=== PATIENT | female | born 1935 | race Caucasian/White ===

== ENCOUNTER 2016-07-08 05:56 | Inpatient (IN) | payer MEDICARE ==
--- NOTE | 2016-07-08 06:56 | EDM.PDOC ---
[id number] Chief Complaint: Respiratory Problem Stated Complaint: BREATHING DIFFICULTY Time Seen by Provider: 07/08/16 06:55 - History of Present Illness INITIAL COMMENTS - FREE TEXT/NARRATIVE: HISTORY AND PHYSICAL: History of present illness: Patient is a 80-year-old white female history of COPD and CHF transferred surfers of breath she has chronic intermittent shortness of breath but states that is slightly worse there is no chest pain nausea vomiting palpitations or other concern she does use a home nebulizer and is on multiple medications please see nursing notes Review of systems: As per history of present illness and below otherwise all systems reviewed and negative. Past medical history: As per history of present illness and as reviewed below otherwise noncontributory. Surgical history: As per history of present illness and as reviewed below otherwise noncontributory. Social history: No reported history of drug or alcohol abuse. Family history: As per history of present illness and as reviewed below otherwise noncontributory. Physical exam: HEENT: Atraumatic, normocephalic, pupils reactive, negative for conjunctival pallor or scleral icterus, mucous membranes moist, throat clear, neck supple, nontender, trachea midline. Lungs: diminished bilaterally scant basilar crackles, breath sounds equal bilaterally, chest nontender. Heart: S1S2, regular, negative for clicks, rubs, or JVD. Abdomen: Soft, nondistended, nontender. Negative for masses or hepatosplenomegaly. Negative for costovertebral tenderness. Pelvis: Stable nontender. Genitourinary: Deferred. Rectal: Deferred. Extremities: Atraumatic, negative for cords or calf pain. Neurovascular unremarkable. Neuro: Awake, alert, oriented. Cranial nerves II through XII unremarkable. Cerebellum unremarkable. Motor and sensory unremarkable throughout. Exam nonfocal. Diagnostics: CBC CMP PT/INR troponin BMP EKG chest x-ray Therapeutics: IV O2 monitor albuterol ipratropium nebulizer Impression: #1 dyspnea #2 COPD with acute exacerbation #3 CHF Definitive disposition and diagnosis as appropriate pending reevaluation and review of above. - Related Data Allergies Allergy/AdvReac Type Severity Reaction Status Date / Time No Known Drug Allergies Allergy Cannot Verified 07/08/16 06:18 Remember Home Meds: Home Meds Calcium Carbonate/Vitamin D3 [Caltrate 600 Plus D3 Tablet] 1 tab PO BID [History] Clopidogrel [Plavix] 75 tab PO DAILY 04/20/14 [History] Furosemide [Lasix] 1 tab PO DAILY 04/20/14 [History] Levothyroxine [Levothroid] 137 mcg PO DAILY 04/20/14 [History] Metoprolol Tartrate [Lopressor] 100 mg PO DAILY 04/20/14 [History] Multivit-Min/FA/Lycopene/Lut [Centrum Silver] 1 tab PO BEDTIME 04/20/14 [History ] Simvastatin [Zocor] 40 mg PO BEDTIME 04/20/14 [History] rOPINIRole [Requip] 4 mg PO BEDTIME 04/20/14 [History] Cyanocobalamin (Vitamin B12) [Cyanocobalamin] 1,000 mcg SQ ASDIRECTED 05/03/14 [ History] Albuterol/Ipratropium [DuoNeb 3.0-0.5 MG/3 ML] 3 ml INH Q4H PRN 07/08/16 [ History] Aspirin [Halfprin] 81 mg PO DAILY 07/08/16 [History] Ergocalciferol (Vitamin D2) [Vitamin D] 400 unit PO DAILY 07/08/16 [History] ED ROS GENERAL - Review of Systems Review Of Systems: ROS reveals no pertinent complaints other than HPI. ED EXAM, GENERAL - Physical Exam Exam: See Below (See dictation) Course - Vital Signs Last Recorded V/S: Last Vital Signs Temp 36.3 C 07/08/16 07:11 Pulse 82 07/08/16 07:16 Resp 19 07/08/16 07:16 BP 103/58 L 07/08/16 07:16 Pulse Ox 95 07/08/16 07:16 - Orders/Labs/Meds Orders: Active Orders 24 hr Category Date Time Status Patient Status [ADT] Stat ADT 07/08/16 07:14 Active EKG 12 Lead [EKG Documentation Completion] [RC] STAT Care 07/08/16 06:12 Active RT Aerosol Therapy [RC] ASDIRECTED Care 07/08/16 06:58 Active Chest 2V [CR] Stat Exams 07/08/16 06:11 Taken Labs: Laboratory Tests 07/08/16 07/08/16 07/08/16 Range/Units 06:20 06:20 06:20 WBC 6.83 (4.0-11.0) K/uL RBC 4.32 (4.30-5.90) M/uL Hgb 13.5 (12.0-16.0) g/dL Hct 42.2 (36.0-46.0) % MCV 97.7 (80.0-98.0) fL MCH 31.3 (27.0-32.0) pg MCHC 32.0 (31.0-37.0) g/dL RDW Std Deviation 50.4 (28.0-62.0) fl RDW Coeff of Janelle 14 (11.0-15.0) % Plt Count 266 (150-400) K/uL MPV 9.10 (7.40-12.00) fL Neut % (Auto) 80.6 H (48.0-80.0) % Lymph % (Auto) 11.7 L (16.0-40.0) % Stanley % (Auto) 6.1 (0.0-15.0) % Eos % (Auto) 1.0 (0.0-7.0) % Baso % (Auto) 0.6 (0.0-1.5) % Neut # (Auto) 5.5 (1.4-5.7) K/uL Lymph # (Auto) 0.8 (0.6-2.4) K/uL Stanley # (Auto) 0.4 (0.0-0.8) K/uL Eos # (Auto) 0.1 (0.0-0.7) K/uL Baso # (Auto) 0.0 (0.0-0.1) K/uL Nucleated RBC % 0.0 /100WBC Nucleated RBCs # 0 K/uL INR (0.86-1.11) Sodium 136 (136-146) mmol/L Potassium 4.5 (3.5-5.1) mmol/L Chloride 103 (98-110) mmol/L Carbon Dioxide 23 (21-31) mmol/L BUN 24 H (6.0-23.0) mg/dL Creatinine 1.4 (0.6-1.5) mg/dL Est Cr Clr Drug Dosing 24.59 mL/min Estimated GFR (MDRD) 36.3 ml/min Glucose 148 H (60-110) mg/dL Calcium 9.3 (8.8-10.8) mg/dL Total Bilirubin 0.6 (0.1-1.5) mg/dL AST 24 (5-40) IU/L ALT 18 (8-54) IU/L Alkaline Phosphatase 74 (40-150) Troponin I < 0.10 (0.0-0.29) NG/ML B-Natriuretic Peptide (<100) PG/ML Total Protein 7.8 (6.0-8.0) g/dL Albumin 3.8 (3.4-4.8) g/dL Globulin 4.0 H (2.0-3.5) g/dL Albumin/Globulin Ratio 1.0 L (1.3-2.8) 07/08/16 07/08/16 Range/Units 06:20 06:20 WBC (4.0-11.0) K/uL RBC (4.30-5.90) M/uL Hgb (12.0-16.0) g/dL Hct (36.0-46.0) % MCV (80.0-98.0) fL MCH (27.0-32.0) pg MCHC (31.0-37.0) g/dL RDW Std Deviation (28.0-62.0) fl RDW Coeff of Janelle (11.0-15.0) % Plt Count (150-400) K/uL MPV (7.40-12.00) fL Neut % (Auto) (48.0-80.0) % Lymph % (Auto) (16.0-40.0) % Stanley % (Auto) (0.0-15.0) % Eos % (Auto) (0.0-7.0) % Baso % (Auto) (0.0-1.5) % Neut # (Auto) (1.4-5.7) K/uL Lymph # (Auto) (0.6-2.4) K/uL Stanley # (Auto) (0.0-0.8) K/uL Eos # (Auto) (0.0-0.7) K/uL Baso # (Auto) (0.0-0.1) K/uL Nucleated RBC % /100WBC Nucleated RBCs # K/uL INR 0.99 (0.86-1.11) Sodium (136-146) mmol/L Potassium (3.5-5.1) mmol/L Chloride (98-110) mmol/L Carbon Dioxide (21-31) mmol/L BUN (6.0-23.0) mg/dL Creatinine (0.6-1.5) mg/dL Est Cr Clr Drug Dosing mL/min Estimated GFR (MDRD) ml/min Glucose (60-110) mg/dL Calcium (8.8-10.8) mg/dL Total Bilirubin (0.1-1.5) mg/dL AST (5-40) IU/L ALT (8-54) IU/L Alkaline Phosphatase (40-150) Troponin I (0.0-0.29) NG/ML B-Natriuretic Peptide 1268 H (<100) PG/ML Total Protein (6.0-8.0) g/dL Albumin (3.4-4.8) g/dL Globulin (2.0-3.5) g/dL Albumin/Globulin Ratio (1.3-2.8) Meds: Medications Discontinued Medications Generic Name Dose Route Start Last Admin Trade Name Darrelq PRN Reason Stop Dose Admin Albuterol/Ipratropium 3 ml 07/08/16 06:58 07/08/16 07:03 Duoneb 3.0-0.5 Mg/3 Ml NEB 07/08/16 06:59 3 ml ONETIME ONE Administration Furosemide 40 mg 07/08/16 07:02 07/08/16 07:13 Lasix IVPUSH 07/08/16 07:03 40 mg NOW ONE Administration Departure - Departure Time of Disposition: 07:12 Disposition: Admitted As Inpatient 67 Condition: good Clinical Impression: COPD (chronic obstructive pulmonary disease), CHF (congestive heart failure) - Discharge Information Referrals: PCP,None [Primary Care Provider] - Forms: ED Department Discharge <Amrik May - Last Filed: 07/08/16 07:24> ED HPI GENERAL MEDICAL PROBLEM - General Source of Information: Reports: Patient - History of Present Illness INITIAL COMMENTS - FREE TEXT/NARRATIVE: HISTORY AND PHYSICAL: History of present illness: [] Shortness of breath Review of systems: As per history of present illness and below otherwise all systems reviewed and negative. Past medical history: As per history of present illness and as reviewed below otherwise noncontributory. Surgical history: As per history of present illness and as reviewed below otherwise noncontributory. Social history: No reported history of drug or alcohol abuse. Family history: As per history of present illness and as reviewed below otherwise noncontributory. Physical exam: HEENT: Atraumatic, normocephalic, pupils reactive, negative for conjunctival pallor or scleral icterus, mucous membranes moist, throat clear, neck supple, nontender, trachea midline. Lungs: Clear to auscultation, breath sounds equal bilaterally, chest nontender. Heart: S1S2, regular, negative for clicks, rubs, or JVD. Abdomen: Soft, nondistended, nontender. Negative for masses or hepatosplenomegaly. Negative for costovertebral tenderness. Pelvis: Stable nontender. Genitourinary: Deferred. Rectal: Deferred. Extremities: Atraumatic, negative for cords or calf pain. Neurovascular unremarkable. Neuro: Awake, alert, oriented. Cranial nerves II through XII unremarkable. Cerebellum unremarkable. Motor and sensory unremarkable throughout. Exam nonfocal. Diagnostics: [] As above Therapeutics: [] As above Admitted Dr. Mccann Impression: [] COPD CHF Definitive disposition and diagnosis as appropriate pending reevaluation and review of above. Treatments RN PATIENT SERVICES: Reports: Breathing Treatments Past Medical History Cardiovascular History: Reports: High Cholesterol, Hypertension Respiratory History: Reports: COPD - Past Surgical History Other Cardiovascular Surgeries/Procedures: Mitral valve surgery Social & Family History - Family History Family Medical History: Noncontributory - Tobacco Use Smoking Status *Q: Former Smoker Years of Tobacco use: 61 Used Tobacco, but Quit: Yes Month Tobacco Last Used: "one year ago" Second Hand Smoke Exposure: Yes - Caffeine Use Caffeine Use: Reports: Coffee Caffeine Use Comment: 3cups/day - Alcohol Use Days Per Week of Alcohol Use: 0 - Recreational Drug Use Recreational Drug Use: No Course - Orders/Labs/Meds Meds: Medications Discontinued Medications Generic Name Dose Route Start Last Admin Trade Name Freq PRN Reason Stop Dose Admin Albuterol/Ipratropium 3 ml 07/08/16 06:58 07/08/16 07:03 Duoneb 3.0-0.5 Mg/3 Ml NEB 07/08/16 06:59 3 ml ONETIME ONE Administration Furosemide 40 mg 07/08/16 07:02 07/08/16 07:13 Lasix IVPUSH 07/08/16 07:03 40 mg NOW ONE Administration
[2016-07-08] MEDS ORDERED: Albuterol/Ipratropium 3.0-0.5 MG/3 ML Neb Soln NEB ONE (06:58)
[2016-07-08] MEDS ORDERED: Furosemide 40 MG/4 ML VIAL IVPUSH ONE (07:02)
--- NOTE | 2016-07-08 13:14 | PCM.HP ---
H&P History of Present Illness - History of Present Illness Initial Comments - Free Text/Narative: 80 yo female with pmh of [place], CVA, CHF, atrial fibrillation, and PVD who presents with several day history of shortness of breath, unproductive cough and worsening of lower extremity edema. She reports the shortenss of breath was worse last night and sitting up helped. She was seen in the ED today and noted to be satting 96% on three litters, CXR reported pulmonary vascular congestion. She was given duonebs and lasix. She does feel a little better now. She is visiting [facility] for [facility] . - Related Data Allergies/Adverse Reactions: Allergies Allergy/AdvReac Type Severity Reaction Status Date / Time No Known Drug Allergies Allergy Cannot Verified 07/08/16 06:18 Remember Home Medications: Home Meds Calcium Carbonate/Vitamin D3 [Caltrate 600 Plus D3 Tablet] 1 tab PO BID [History] Clopidogrel [Plavix] 75 tab PO DAILY 04/20/14 [History] Furosemide [Lasix] 1 tab PO DAILY 04/20/14 [History] Levothyroxine [Levothroid] 137 mcg PO DAILY 04/20/14 [History] Multivit-Min/FA/Lycopene/Lut [Centrum Silver] 1 tab PO BEDTIME 04/20/14 [History ] Simvastatin [Zocor] 20 mg PO BEDTIME 04/20/14 [History] rOPINIRole [Requip] 4 mg PO BEDTIME 04/20/14 [History] Cyanocobalamin (Vitamin B12) [Cyanocobalamin] 1,000 mcg SQ ASDIRECTED 05/03/14 [ History] Albuterol/Ipratropium [DuoNeb 3.0-0.5 MG/3 ML] 3 ml INH Q4H PRN 07/08/16 [ History] Aspirin [Halfprin] 81 mg PO DAILY 07/08/16 [History] Ergocalciferol (Vitamin D2) [Vitamin D] 400 unit PO DAILY 07/08/16 [History] Melatonin 5 mg PO BEDTIME 07/08/16 [History] Metoprolol Succinate [Toprol Xl] 100 mg PO DAILY 07/08/16 [History] Potassium Chloride [Klor-Con M20] 20 meq PO BID 07/08/16 [History] Spironolactone [Aldactone] 25 mg PO BID 07/08/16 [History] amLODIPine [Norvasc] 5 mg PO DAILY 07/08/16 [History] Past Medical History Cardiovascular History: Reports: Afib, Heart Failure, High Cholesterol, Hypertension, [place], SOB on Exertion Respiratory History: Reports: COPD Neurological History: Reports: CVA Endocrine/Metabolic History: Reports: Hypothyroidism - Past Surgical History Other Cardiovascular Surgeries/Procedures: Mitral valve surgery Endocrine Surgical History: Reports: None Neurological Surgical History: Reports: None Social & Family History - Family History Family Medical History: Noncontributory - Tobacco Use Smoking Status *Q: Former Smoker Years of Tobacco use: 61 Used Tobacco, but Quit: Yes Month Tobacco Last Used: "one year ago" Second Hand Smoke Exposure: Yes - Caffeine Use Caffeine Use: Reports: Coffee Caffeine Use Comment: 3cups/day - Alcohol Use Days Per Week of Alcohol Use: 0 - Recreational Drug Use Recreational Drug Use: No H&P Review of Systems - Review of Systems: Review Of Systems: See Below General: Reports: No Symptoms HEENT: Reports: No Symptoms Pulmonary: Reports: Shortness of Breath, Cough, Sputum (white) Cardiovascular: Reports: PND, Edema. Denies: Chest Pain, Palpitations Gastrointestinal: Reports: No Symptoms Genitourinary: Reports: No Symptoms Musculoskeletal: Reports: No Symptoms Skin: Reports: No Symptoms Psychiatric: Reports: No Symptoms Neurological: Reports: No Symptoms Hematologic/Lymphatic: Reports: No Symptoms Immunologic: Reports: No Symptoms Exam - Exam Exam: See Below - Vital Signs Vital Signs: Last Vital Signs Temp 37.1 C 07/08/16 12:26 Pulse 77 07/08/16 12:26 Resp 20 07/08/16 12:26 BP 155/67 H 07/08/16 12:26 Pulse Ox 93 L 07/08/16 12:46 Weight: 89.811 kg - Exam General: Alert, Oriented, 4 HEENT: Mucosa Moist & [place] Neck: Supple Lungs: Normal Respiratory Effort, Crackles (lower bases) Abdomen: Soft. No: Tenderness Extremities: Other (+2 edema of lower legs) - Patient Data Result Diagrams: 07/09/16 05:28 07/09/16 05:28 *Q Meaningful Use (ADM) - VTE *Q VTE Criteria *Q: - Stroke *Q Stroke Criteria *Q: - AMI *Q AMI Criteria *Q: Problem List Initiated/Reviewed/Updated: Yes Orders Last 24hrs: Active Orders 24 hr Category Date Time Status Antiembolic Devices [RC] PER UNIT ROUTINE Care 07/08/16 12:47 Ordered Oxygen Therapy [RC] PRN Care 07/08/16 12:46 Ordered RT Aerosol Therapy [RC] ASDIRECTED Care 07/08/16 10:03 Active VTE/DVT Education [RC] PER UNIT ROUTINE Care 07/08/16 12:46 Ordered Vital Signs [RC] Q4H Care 07/08/16 12:46 Ordered 2 Gram Sodium Diet [DIET] Diet 07/08/16 Breakfast Ordered Heart Healthy Diet [DIET] Diet 07/08/16 Breakfast Active BASIC METABOLIC PANEL,BMP [CHEM] AM Lab 07/09/16 05:11 Ordered BASIC METABOLIC PANEL,BMP [CHEM] AM Lab 07/10/16 05:11 Ordered BASIC METABOLIC PANEL,BMP [CHEM] AM Lab 07/11/16 05:11 Ordered CBC WITH AUTO DIFF [HEME] AM Lab 07/09/16 05:11 Ordered CBC WITH AUTO DIFF [HEME] AM Lab 07/10/16 05:11 Ordered CBC WITH AUTO DIFF [HEME] AM Lab 07/11/16 05:11 Ordered Albuterol/Ipratropium [DuoNeb 3.0-0.5 MG/3 ML] Med 07/08/16 10:00 Active 3 ml NEB Q4HRRT PRN Aspirin [Halfprin] Med 07/09/16 09:00 Ordered 81 mg PO DAILY Clopidogrel [Plavix] Med 07/09/16 09:00 Ordered 75 tab PO DAILY Furosemide [Lasix] Med 07/09/16 09:00 Ordered 1 tab PO DAILY Furosemide [Lasix] Med 07/08/16 14:00 Ordered 40 mg IVPUSH BIDDIURETIC Simvastatin [Zocor] Med 07/08/16 21:00 Ordered 40 mg PO BEDTIME rOPINIRole [Requip] Med 07/08/16 21:00 Ordered 4 mg PO BEDTIME Sequential Compression Device [OM.PC] Per Unit Routine Oth 07/08/16 12:46 Ordered Resuscitation Status Routine Resus Stat 07/08/16 12:46 Ordered Medication Orders Albuterol/Ipratropium (Duoneb 3.0-0.5 Mg/3 Ml) 3 ml NEB Q4HRRT PRN PRN Reason: Dyspnea Aspirin (Halfprin) 81 mg PO DAILY NAVA Clopidogrel Bisulfate (Plavix) 75 mg PO DAILY NAVA Furosemide (Lasix) 40 mg PO DAILY NAVA Furosemide (Lasix) 40 mg IVPUSH BIDDIURETIC NAVA Ropinirole HCl (Requip) 4 mg PO BEDTIME NAVA Simvastatin (Zocor) 40 mg PO BEDTIME NAVA Assessment/Plan Comment:: 80 yo female admitted with CHF exacerbation. We will diuresis with lasix. We will try to get medical records and medication list from [place]. If no recent echo may need to order one.
[2016-07-08] MEDS: Furosemide 40 MG/4 ML VIAL IVPUSH SCH (14:28)
[2016-07-08] MEDS ORDERED: rOPINIRole 1 MG Tab PO STA (16:08)
[2016-07-08] MEDS: Acetaminophen 325 MG Tab PO PRN (16:53)
[2016-07-08] MEDS: rOPINIRole 1 MG Tab PO SCH (20:28)
[2016-07-08] MEDS: Simvastatin 40 MG Tab PO SCH (21:19)
[2016-07-08] MEDS: Melatonin 3 MG Tab PO SCH (21:19)
[2016-07-08] MEDS: Albuterol/Ipratropium 3.0-0.5 MG/3 ML Neb Soln NEB PRN (21:34)
[2016-07-09] MEDS: Albuterol/Ipratropium 3.0-0.5 MG/3 ML Neb Soln NEB PRN (00:55)
[2016-07-09] MEDS: Acetaminophen 325 MG Tab PO PRN (04:34)
[2016-07-09] MEDS: Clopidogrel 75 MG Tab PO SCH (08:12)
[2016-07-09] MEDS: Aspirin 81 MG Tab.EC PO SCH (08:12)
[2016-07-09] MEDS: Furosemide 40 MG/4 ML VIAL IVPUSH SCH ×3 (08:12→23:01)
[2016-07-09] MEDS: Levothyroxine 25 MCG Tab PO SCH (08:12)
[2016-07-09] MEDS: Levothyroxine 112 MCG Tab PO SCH (08:12)
[2016-07-09] MEDS ORDERED: Furosemide 40 MG Tab PO SCH (09:00)
[2016-07-09] MEDS ORDERED: Enoxaparin 30 MG/0.3 ML Syringe SUBCUT SCH (09:00)
--- NOTE | 2016-07-09 09:13 | PCM.PN ---
- General Info Date of Service: 07/09/16 Admission Dx/Problem (Free Text): CHF exacerbation Subjective Update: Just ambulated back to bed from bathroom, very dyspenic, on 2.5 L NC. She reports sitting up continues to help. Denies any chest pain or palpitations. She reports Leg swelling has improved some, but "they are still swollen". Complaining of cracked dry flaking feet bilaterally. She is seeing a plaster machine operator who has order creams and ointments. She ultimately has stopped using those and is use down to soaking her feet in warm water, sometimes with Vinegar at Quality Control Coordinator's recommendation. Then after soaking she applies Bag balm and [place]'Keeffes foot cream, she would like do be able to do this here. Functional Status: Reports: pain controlled, tolerating diet, ambulating, urinating - Review of Systems General: Reports: No Symptoms. Denies: Fever HEENT: Reports: no symptoms. Denies: sinus congestion, sore throat Pulmonary: Reports: shortness of breath. Denies: cough, sputum Cardiovascular: Reports: Dyspnea on Exertion, Orthopnea, Edema. Denies: Chest Pain, Palpitations Gastrointestinal: Reports: No symptoms. Denies: Abdominal pain, Nausea, Vomiting Genitourinary: Reports: no symptoms. Denies: dysuria, frequency, burning Musculoskeletal: Reports: no symptoms Skin: Reports: dryness, other (flaking and cracking to soles of bilateral feet) Neurological: Reports: No Symptoms Psychiatric: Reports: no symptoms - Patient Data Vitals - most recent: Last Vital Signs Temp 97.7 F 07/09/16 08:00 Pulse 87 07/09/16 08:00 Resp 18 07/09/16 08:00 BP 105/53 L 07/09/16 08:00 Pulse Ox 93 L 07/09/16 08:00 Weight - most recent: 90.1 kg I&O - last 24 hours: Intake & Output 07/08/16 07/09/16 07/09/16 22:59 06:59 14:59 Intake Total 900 350 Output Total 2800 1200 Balance -1900 -850 Lab Results last 24 hrs: Laboratory Results - last 24 hr 07/09/16 07/09/16 Range/Units 05:28 05:28 WBC 5.78 (4.0-11.0) K/uL RBC 4.00 L (4.30-5.90) M/uL Hgb 12.8 (12.0-16.0) g/dL Hct 39.0 (36.0-46.0) % MCV 97.5 (80.0-98.0) fL MCH 32.0 (27.0-32.0) pg MCHC 32.8 (31.0-37.0) g/dL RDW Std Deviation 50.7 (28.0-62.0) fl RDW Coeff of Janelle 14 (11.0-15.0) % Plt Count 235 (150-400) K/uL MPV 9.10 (7.40-12.00) fL Neut % (Auto) 69.6 (48.0-80.0) % Lymph % (Auto) 17.3 (16.0-40.0) % [place] % (Auto) 10.7 (0.0-15.0) % Eos % (Auto) 1.9 (0.0-7.0) % Baso % (Auto) 0.5 (0.0-1.5) % Neut # (Auto) 4.0 (1.4-5.7) K/uL Lymph # (Auto) 1.0 (0.6-2.4) K/uL [place] # (Auto) 0.6 (0.0-0.8) K/uL Eos # (Auto) 0.1 (0.0-0.7) K/uL Baso # (Auto) 0.0 (0.0-0.1) K/uL Nucleated RBC % 0.0 /100WBC Nucleated RBCs # 0 K/uL Sodium 134 L (136-146) mmol/L Potassium 4.0 (3.5-5.1) mmol/L Chloride 97 L (98-110) mmol/L Carbon Dioxide 26 (21-31) mmol/L BUN 20 (6.0-23.0) mg/dL Creatinine 1.2 (0.6-1.5) mg/dL Est Cr Clr Drug Dosing 28.72 mL/min Estimated GFR (MDRD) 43.3 ml/min Glucose 105 (60-110) mg/dL Calcium 8.5 L (8.8-10.8) mg/dL Med Orders - Current: Current Medications Acetaminophen (Tylenol) 650 mg PO Q4H PRN PRN Reason: Pain/Fever Last Admin: 07/09/16 04:34 Dose: 650 mg Albuterol/Ipratropium (Duoneb 3.0-0.5 Mg/3 Ml) 3 ml NEB Q4HRRT PRN PRN Reason: Dyspnea Last Admin: 07/09/16 00:55 Dose: 3 ml Aspirin (Halfprin) 81 mg PO DAILY [facility] Last Admin: 07/09/16 08:12 Dose: 81 mg Clopidogrel Bisulfate (Plavix) 75 mg PO DAILY [facility] Last Admin: 07/09/16 08:12 Dose: 75 mg Furosemide (Lasix) 40 mg IVPUSH BIDDIURETIC [facility] Last Admin: 07/09/16 08:12 Dose: 40 mg Levothyroxine Sodium (Levothyroxine) 112 mcg PO ACBREAKFAST [facility] Last Admin: 07/09/16 08:12 Dose: 112 mcg Levothyroxine Sodium (Levothyroxine) 25 mcg PO ACBREAKFAST [facility] Last Admin: 07/09/16 08:12 Dose: 25 mcg Melatonin (Melatonin) 3 mg PO BEDTIME [facility] Last Admin: 07/08/16 21:19 Dose: 3 mg Ropinirole HCl (Requip) 4 mg PO BEDTIME [facility] Last Admin: 07/08/16 20:28 Dose: Not Given Simvastatin (Zocor) 40 mg PO BEDTIME [facility] Last Admin: 07/08/16 21:19 Dose: 40 mg Discontinued Medications Albuterol/Ipratropium (Duoneb 3.0-0.5 Mg/3 Ml) 3 ml NEB ONETIME ONE Stop: 07/08/16 06:59 Last Admin: 07/08/16 07:03 Dose: 3 ml Enoxaparin Sodium (Lovenox) 30 mg SUBCUT DAILY [facility] Furosemide (Lasix) 40 mg IVPUSH NOW ONE Stop: 07/08/16 07:03 Last Admin: 07/08/16 07:13 Dose: 40 mg Furosemide (Lasix) 40 mg PO DAILY [facility] Ropinirole HCl (Requip) 4 mg PO ONETIME STA Stop: 07/08/16 16:09 Last Admin: 07/08/16 16:46 Dose: 4 mg - Exam General: alert, oriented, cooperative HEENT: Pupils equal, Pupils reactive, EOMI, Mucous membr. moist/pink Neck: supple, JVD. No: lymphadenopathy Lungs: Decreased breath sounds (bibasilar with fine crackles), Wheezing ( bibasilar). No: Normal respiratory effort Cardiovascular: Regular Rate, Regular Rhythm Abdomen: bowel sounds present, soft, no tenderness, no distension Back Exam: Normal Inspection, Full Range of Motion Extremities: normal pulses, edema (+1 pitting edema to bilateral lower legs, +2 pitting to bilateral feet. +2 edema extending up to bilateral thighs, non- pitting.) Skin: dry, other (dry, flkaing skins covers entire sole of each foot. R great toe, there is some cracking noted, no erythema. There is tenderness noted. Requesting to continue home regimen of foot creams and soaking. Dryness and flaking also noted, but less severely to bilateral palms.). No: intact Neurological: no new focal deficit Psy/Mental Status: alert, normal affect, normal mood - Problem List & Annotations (1) CHF (congestive heart failure) SNOMED Code(s): 76154843 Code(s): I50.9 - HEART FAILURE, UNSPECIFIED Status: Acute Current Visit: Yes Qualifiers: Congestive heart failure type: diastolic Congestive heart failure chronicity: acute on chronic Qualified Code(s): I50.33 - Acute on chronic diastolic (congestive) heart failure Annotation/Comment:: Last ECHO February 2016 approximately revealed 65% EF (2) PVD (peripheral vascular disease) SNOMED Code(s): 770045590 Code(s): I73.9 - PERIPHERAL VASCULAR DISEASE, UNSPECIFIED Status: Chronic Current Visit: Yes (3) S/P mitral valve clip implantation SNOMED Code(s): 68139636834863 Code(s): Z98.890 - OTHER SPECIFIED POSTPROCEDURAL STATES; Z95.818 - PRESENCE OF OTHER CARDIAC IMPLANTS AND GRAFTS Status: Chronic Current Visit: Yes Annotation/Comment:: August 2015 (4) Mitral valve regurgitation SNOMED Code(s): 70789336 Code(s): I34.0 - NONRHEUMATIC MITRAL (VALVE) INSUFFICIENCY Status: Chronic Current Visit: Yes Qualifiers: Cardiac valve disease etiology: etiology unspecified Qualified Code(s): I34.0 - Nonrheumatic mitral (valve) insufficiency (5) A-fib SNOMED Code(s): 82923560 Code(s): I48.91 - UNSPECIFIED ATRIAL FIBRILLATION Status: Chronic Current Visit: Yes Qualifiers: Atrial fibrillation type: unspecified Qualified Code(s): I48.91 - Unspecified atrial fibrillation (6) RLS (restless legs syndrome) SNOMED Code(s): 88173595 Code(s): G25.81 - RESTLESS LEGS SYNDROME Status: Chronic Current Visit: Yes (7) CAD (coronary artery disease) SNOMED Code(s): 23709213 Code(s): I25.10 - ATHSCL HEART DISEASE OF [place] CORONARY ARTERY W/O ANG PCTRS Status: Chronic Current Visit: Yes Qualifiers: Coronary Disease-Associated Artery/Lesion type: [place] artery [place] vs. transplanted heart: [place] heart Associated angina: without angina Qualified Code(s): I25.10 - Atherosclerotic heart disease of [place] coronary artery without angina pectoris (8) HTN (hypertension) SNOMED Code(s): 38531808 Code(s): I10 - ESSENTIAL (PRIMARY) HYPERTENSION Status: Chronic Current Visit: Yes Qualifiers: Hypertension type: essential hypertension Qualified Code(s): I10 - Essential (primary) hypertension (9) Hypothyroidism SNOMED Code(s): 00301576 Code(s): E03.9 - HYPOTHYROIDISM, UNSPECIFIED Status: Chronic Current Visit: Yes Qualifiers: Hypothyroidism type: unspecified Qualified Code(s): E03.9 - Hypothyroidism , unspecified (10) History of CVA (cerebrovascular accident) SNOMED Code(s): 327465503 Code(s): Z86.73 - PRSNL HX OF TIA (TIA), AND CEREB INFRC W/O RESID DEFICITS Status: Chronic Current Visit: Yes Annotation/Comment:: 09/23/2002 (11) Hx of myocardial infarction SNOMED Code(s): 059471975 Code(s): I25.2 - OLD MYOCARDIAL INFARCTION Status: Chronic Current Visit : Yes Annotation/Comment:: 1982 - Problem List Review Problem List Initiated/Reviewed/Updated: Yes - My Orders Last 24 Hours: My Active Orders 07/09/16 08:24 Height and Weight [RC] DAILY Intake and Output Strict [RC] ASDIRECTED - Plan Plan:: 80 yo female admitted with CHF exacerbation. 1. CHF acute exacberation: Acute on Chronic, has hx of chronic diastolic heart failure. Records review from [place]. ECHO report reveals preserved EF, 60%, mild mitral valve stenosis and regurgitation, ,mild pulmonary artery hypertension, which had increased since last study.Continue diuresis with Lasix. Will restart Spironolactone.Strict I/O and daily weights. 2. CAD: Continue Plavix and ASA. Continue Zocor. 3. Hx afib: Continue Metoprolol. Monitor electrolytes 4. Hypothyroidism: Continue Levothyroxine 5. HTN: Monitor, stable at this time while receiving more Lasix, Hold Norvasc. 6. RLS: Continue Requip. 7. Cry skin to bilateral soles: Will continue warm water soaks, with creams. VTE prohylaxis: SCDs. Dispo: 2-3 days pending improvement.
[2016-07-09] MEDS: Metoprolol Succinate 100 MG Tab.ER PO SCH (09:53)
--- NOTE | 2016-07-09 15:11 | CR ---
EXAM DATE: 07/08/16 PATIENT'S AGE: 80 Patient: MURTAZA CHAPPELL Facility: [place], [place] Site . Site : [id number] Study: XRay Chest [id number]/21/2017 6:49:14 AM Ordering Physician: Doctor Sanchez Final Report: INDICATION: Shortness of breath TECHNIQUE: Chest radiograph 2 views COMPARISON: None FINDINGS: Cardiovascular and mediastinum: The heart silhouette is normal in size and morphology. The mediastinum is normal in appearance. There are 2 metallic clips seen over the cardiac silhouette. Lungs and pleural spaces: Interstitial prominence is present bilaterally. Mild bibasilar atelectasis seen. Small bilateral pleural effusions are noted. No pneumothorax is identified. Bones and soft tissues: No significant findings. IMPRESSION: 1. Mild interstitial pulmonary edema and small bilateral pleural effusions are noted. Dictated by Nate Gonzales MD @ 07/08/2016 6:52:14 AM Dictated by: Nate Gonzales MD @ 07/08/2016 06:52:18 (Electronic Signature) Report Signed by Proxy. [facility]
[2016-07-09] MEDS: Spironolactone 25 MG Tab PO SCH (22:59)
[2016-07-09] MEDS: Beta-Carotene (Vitamin A) w/Vitamin C & E plus Minerals Tab PO SCH (22:59)
[2016-07-09] MEDS: Simvastatin 40 MG Tab PO SCH (23:00)
[2016-07-09] MEDS: Melatonin 3 MG Tab PO SCH (23:00)
[2016-07-09] MEDS: rOPINIRole 1 MG Tab PO SCH (23:00)
[2016-07-09] MEDS: Calcium Carbonate/Vitamin D3 1500 MG-400 Units Tab PO SCH (23:00)
[2016-07-10] MEDS: Furosemide 40 MG/4 ML VIAL IVPUSH SCH ×3 (06:07→17:32)
[2016-07-10] MEDS: Levothyroxine 25 MCG Tab PO SCH (06:54)
[2016-07-10] MEDS: Levothyroxine 112 MCG Tab PO SCH (06:55)
--- NOTE | 2016-07-10 08:09 | PCM.PN ---
- General Info Date of Service: 07/10/16 Admission Dx/Problem (Free Text): CHF exacerbation Subjective Update: Doing better today, SOB continues, but is much improved. Able to ambulate more. Denies any chest pain or palpitations. She reports Leg swelling has improved some. Functional Status: Reports: pain controlled, tolerating diet, ambulating, urinating - Review of Systems General: Reports: No Symptoms. Denies: Fever HEENT: Reports: no symptoms. Denies: sinus congestion, sore throat, rhinitis Pulmonary: Reports: shortness of breath. Denies: cough, sputum Cardiovascular: Reports: Dyspnea on Exertion, Edema. Denies: Chest Pain, Palpitations Gastrointestinal: Reports: No symptoms. Denies: Abdominal pain, Nausea, Vomiting Genitourinary: Reports: no symptoms. Denies: dysuria, frequency, burning Musculoskeletal: Reports: no symptoms Skin: Reports: no symptoms Neurological: Reports: No Symptoms Psychiatric: Reports: no symptoms - Patient Data Vitals - most recent: Last Vital Signs Temp 97.2 F 07/10/16 07:59 Pulse 68 07/10/16 07:59 Resp 22 H 07/10/16 07:59 BP 122/62 07/10/16 07:59 Pulse Ox 95 07/10/16 07:59 Weight - most recent: 88.5 kg I&O - last 24 hours: Intake & Output 07/09/16 07/10/16 07/10/16 22:59 06:59 14:59 Intake Total 1120 500 Output Total 1800 1750 Balance -680 -1250 Lab Results last 24 hrs: Laboratory Results - last 24 hr 07/09/16 07/10/16 07/10/16 Range/Units 05:28 04:34 04:34 WBC 6.15 (4.0-11.0) K/uL RBC 4.01 L (4.30-5.90) M/uL Hgb 12.7 (12.0-16.0) g/dL Hct 39.2 (36.0-46.0) % MCV 97.8 (80.0-98.0) fL MCH 31.7 (27.0-32.0) pg MCHC 32.4 (31.0-37.0) g/dL RDW Std Deviation 49.9 (28.0-62.0) fl RDW Coeff of Janelle 14 (11.0-15.0) % Plt Count 247 (150-400) K/uL MPV 9.10 (7.40-12.00) fL Neut % (Auto) 60.7 (48.0-80.0) % Lymph % (Auto) 22.6 (16.0-40.0) % [place] % (Auto) 11.2 (0.0-15.0) % Eos % (Auto) 4.4 (0.0-7.0) % Baso % (Auto) 1.1 (0.0-1.5) % Neut # (Auto) 3.7 (1.4-5.7) K/uL Lymph # (Auto) 1.4 (0.6-2.4) K/uL [place] # (Auto) 0.7 (0.0-0.8) K/uL Eos # (Auto) 0.3 (0.0-0.7) K/uL Baso # (Auto) 0.1 (0.0-0.1) K/uL Nucleated RBC % 0.0 /100WBC Nucleated RBCs # 0 K/uL Sodium 137 (136-146) mmol/L Potassium 4.1 (3.5-5.1) mmol/L Chloride 99 (98-110) mmol/L Carbon Dioxide 28 (21-31) mmol/L BUN 20 (6.0-23.0) mg/dL Creatinine 1.2 (0.6-1.5) mg/dL Est Cr Clr Drug Dosing 28.72 mL/min Estimated GFR (MDRD) 43.3 ml/min Glucose 91 (60-110) mg/dL Calcium 8.7 L (8.8-10.8) mg/dL Magnesium 1.8 (1.5-2.3) mEq/L 07/10/16 Range/Units 04:34 WBC (4.0-11.0) K/uL RBC (4.30-5.90) M/uL Hgb (12.0-16.0) g/dL Hct (36.0-46.0) % MCV (80.0-98.0) fL MCH (27.0-32.0) pg MCHC (31.0-37.0) g/dL RDW Std Deviation (28.0-62.0) fl RDW Coeff of Janelle (11.0-15.0) % Plt Count (150-400) K/uL MPV (7.40-12.00) fL Neut % (Auto) (48.0-80.0) % Lymph % (Auto) (16.0-40.0) % [place] % (Auto) (0.0-15.0) % Eos % (Auto) (0.0-7.0) % Baso % (Auto) (0.0-1.5) % Neut # (Auto) (1.4-5.7) K/uL Lymph # (Auto) (0.6-2.4) K/uL [place] # (Auto) (0.0-0.8) K/uL Eos # (Auto) (0.0-0.7) K/uL Baso # (Auto) (0.0-0.1) K/uL Nucleated RBC % /100WBC Nucleated RBCs # K/uL Sodium (136-146) mmol/L Potassium (3.5-5.1) mmol/L Chloride (98-110) mmol/L Carbon Dioxide (21-31) mmol/L BUN (6.0-23.0) mg/dL Creatinine (0.6-1.5) mg/dL Est Cr Clr Drug Dosing mL/min Estimated GFR (MDRD) ml/min Glucose (60-110) mg/dL Calcium (8.8-10.8) mg/dL Magnesium 2.0 (1.5-2.3) mEq/L Med Orders - Current: Current Medications Acetaminophen (Tylenol) 650 mg PO Q4H PRN PRN Reason: Pain/Fever Last Admin: 07/09/16 04:34 Dose: 650 mg Albuterol/Ipratropium (Duoneb 3.0-0.5 Mg/3 Ml) 3 ml NEB Q4HRRT PRN PRN Reason: Dyspnea Last Admin: 07/09/16 00:55 Dose: 3 ml Aspirin (Halfprin) 81 mg PO DAILY [facility] Last Admin: 07/09/16 08:12 Dose: 81 mg Calcium Carbonate (Caltrate 600+D 1500 Mg-400 Units) 1 tab PO BID [facility] Last Admin: 07/09/16 23:00 Dose: 1 tab Cholecalciferol (Vitamin D3) 400 units PO DAILY [facility] Clopidogrel Bisulfate (Plavix) 75 mg PO DAILY [facility] Last Admin: 07/09/16 08:12 Dose: 75 mg Furosemide (Lasix) 40 mg IVPUSH 0600,1200,1800 [facility] Last Admin: 07/10/16 06:07 Dose: 40 mg Levothyroxine Sodium (Levothyroxine) 112 mcg PO ACBREAKFAST [facility] Last Admin: 07/10/16 06:55 Dose: 112 mcg Levothyroxine Sodium (Levothyroxine) 25 mcg PO ACBREAKFAST [facility] Last Admin: 07/10/16 06:54 Dose: 25 mcg Melatonin (Melatonin) 3 mg PO BEDTIME [facility] Last Admin: 07/09/16 23:00 Dose: 3 mg Metoprolol Succinate (Toprol Xl) 100 mg PO DAILY [facility] Last Admin: 07/09/16 09:53 Dose: 100 mg Multivitamins/Minerals (Prosight) 1 tab PO BEDTIME [facility] Last Admin: 07/09/16 22:59 Dose: 1 tab Ropinirole HCl (Requip) 4 mg PO BEDTIME [facility] Last Admin: 07/09/16 23:00 Dose: 4 mg Simvastatin (Zocor) 40 mg PO BEDTIME [facility] Last Admin: 07/09/16 23:00 Dose: 40 mg Spironolactone (Aldactone) 25 mg PO BID [facility] Last Admin: 07/09/16 22:59 Dose: 25 mg Discontinued Medications Albuterol/Ipratropium (Duoneb 3.0-0.5 Mg/3 Ml) 3 ml NEB ONETIME ONE Stop: 07/08/16 06:59 Last Admin: 07/08/16 07:03 Dose: 3 ml Enoxaparin Sodium (Lovenox) 30 mg SUBCUT DAILY [facility] Furosemide (Lasix) 40 mg IVPUSH NOW ONE Stop: 07/08/16 07:03 Last Admin: 07/08/16 07:13 Dose: 40 mg Furosemide (Lasix) 40 mg PO DAILY [facility] Furosemide (Lasix) 40 mg IVPUSH BIDDIURETIC [facility] Last Admin: 07/09/16 08:12 Dose: 40 mg Furosemide (Lasix) 40 mg IVPUSH TID [facility] Last Admin: 07/09/16 23:01 Dose: 40 mg Ropinirole HCl (Requip) 4 mg PO ONETIME STA Stop: 07/08/16 16:09 Last Admin: 07/08/16 16:46 Dose: 4 mg - Exam Quality Assessment: supplemental oxygen (continuing to wean to RA. ), DVT prophylaxis General: alert, oriented, cooperative Neck: supple Lungs: Crackles (fine crackles to bases, but much improved.). No: Normal respiratory effort (dyspnea noted with speech, but is improved from yesterday.) , Wheezing Cardiovascular: Regular Rate, Regular Rhythm Extremities: edema (+1 pitting edema to bilateral lower legs.) Skin: warm, dry, other (flaking continues to soles of feet) Neurological: no new focal deficit Psy/Mental Status: alert, normal affect, normal mood - Problem List & Annotations (1) CHF (congestive heart failure) SNOMED Code(s): 74488304 Code(s): I50.9 - HEART FAILURE, UNSPECIFIED Status: Acute Current Visit: Yes Qualifiers: Congestive heart failure type: diastolic Congestive heart failure chronicity: acute on chronic Qualified Code(s): I50.33 - Acute on chronic diastolic (congestive) heart failure Annotation/Comment:: Last ECHO February 2016 approximately revealed 65% EF (2) PVD (peripheral vascular disease) SNOMED Code(s): 512319289 Code(s): I73.9 - PERIPHERAL VASCULAR DISEASE, UNSPECIFIED Status: Chronic Current Visit: Yes (3) S/P mitral valve clip implantation SNOMED Code(s): 66192538713641 Code(s): Z98.890 - OTHER SPECIFIED POSTPROCEDURAL STATES; Z95.818 - PRESENCE OF OTHER CARDIAC IMPLANTS AND GRAFTS Status: Chronic Current Visit: Yes Annotation/Comment:: August 2015 (4) Mitral valve regurgitation SNOMED Code(s): 46414723 Code(s): I34.0 - NONRHEUMATIC MITRAL (VALVE) INSUFFICIENCY Status: Chronic Current Visit: Yes Qualifiers: Cardiac valve disease etiology: etiology unspecified Qualified Code(s): I34.0 - Nonrheumatic mitral (valve) insufficiency (5) A-fib SNOMED Code(s): 89317536 Code(s): I48.91 - UNSPECIFIED ATRIAL FIBRILLATION Status: Chronic Current Visit: Yes Qualifiers: Atrial fibrillation type: unspecified Qualified Code(s): I48.91 - Unspecified atrial fibrillation (6) RLS (restless legs syndrome) SNOMED Code(s): 39741497 Code(s): G25.81 - RESTLESS LEGS SYNDROME Status: Chronic Current Visit: Yes (7) CAD (coronary artery disease) SNOMED Code(s): 18651264 Code(s): I25.10 - ATHSCL HEART DISEASE OF [place] CORONARY ARTERY W/O ANG PCTRS Status: Chronic Current Visit: Yes Qualifiers: Coronary Disease-Associated Artery/Lesion type: [place] artery [place] vs. transplanted heart: [place] heart Associated angina: without angina Qualified Code(s): I25.10 - Atherosclerotic heart disease of [place] coronary artery without angina pectoris (8) HTN (hypertension) SNOMED Code(s): 06374065 Code(s): I10 - ESSENTIAL (PRIMARY) HYPERTENSION Status: Chronic Current Visit: Yes Qualifiers: Hypertension type: essential hypertension Qualified Code(s): I10 - Essential (primary) hypertension (9) Hypothyroidism SNOMED Code(s): 91745735 Code(s): E03.9 - HYPOTHYROIDISM, UNSPECIFIED Status: Chronic Current Visit: Yes Qualifiers: Hypothyroidism type: unspecified Qualified Code(s): E03.9 - Hypothyroidism , unspecified (10) History of CVA (cerebrovascular accident) SNOMED Code(s): 713551078 Code(s): Z86.73 - PRSNL HX OF TIA (TIA), AND CEREB INFRC W/O RESID DEFICITS Status: Chronic Current Visit: Yes Annotation/Comment:: 09/23/2002 (11) Hx of myocardial infarction SNOMED Code(s): 543549142 Code(s): I25.2 - OLD MYOCARDIAL INFARCTION Status: Chronic Current Visit : Yes Annotation/Comment:: 1982 - Problem List Review Problem List Initiated/Reviewed/Updated: Yes - My Orders Last 24 Hours: My Active Orders 07/09/16 08:24 Height and Weight [RC] DAILY Intake and Output Strict [RC] Q12H 07/09/16 09:30 Metoprolol Succinate [Toprol XL] 100 mg PO DAILY 07/09/16 11:47 Communication Order [RC] DAILY 07/09/16 21:00 Beta-Carotene(A) w/C & E/Min [Prosight] 1 tab PO BEDTIME Calcium Carbonate/Vitamin D3 [Caltrate 600+D 1500 MG-400 Units] 1 tab PO BID Spironolactone [Aldactone] 25 mg PO BID 07/10/16 06:00 Furosemide [Lasix] 40 mg IVPUSH 0600,1200,1800 07/10/16 09:00 Cholecalciferol (Vitamin D3) [Vitamin D3] 400 units PO DAILY 07/11/16 05:00 MAGNESIUM [CHEM] DAILY 07/12/16 05:00 MAGNESIUM [CHEM] DAILY - Plan Plan:: 80 yo female admitted with CHF exacerbation. 1. CHF acute exacberation: Acute on Chronic, has hx of chronic diastolic heart failure. Most recent ECHO in May. Continue diuresis with Lasix TID, close to "dry" weight of 192 lbs. Continue Spironolactone. Strict I/O and daily weights. 2. CAD: Continue Plavix and ASA. Continue Zocor. 3. Hx afib: Continue Metoprolol. Monitor electrolytes 4. Hypothyroidism: Continue Levothyroxine 5. HTN: Monitor, stable at this time while receiving more Lasix, Hold Norvasc. 6. RLS: Continue Requip. 7. Cry skin to bilateral soles: Will continue warm water soaks, with creams. VTE prohylaxis: SCDs. Dispo: Possible DC in am in weaned off oxygen and dyspnea improved
[2016-07-10] MEDS: Spironolactone 25 MG Tab PO SCH ×2 (08:52→21:12)
[2016-07-10] MEDS: Calcium Carbonate/Vitamin D3 1500 MG-400 Units Tab PO SCH ×2 (08:52→21:12)
[2016-07-10] MEDS: Aspirin 81 MG Tab.EC PO SCH (08:52)
[2016-07-10] MEDS: Clopidogrel 75 MG Tab PO SCH (08:52)
[2016-07-10] MEDS: Metoprolol Succinate 100 MG Tab.ER PO SCH (08:52)
[2016-07-10] MEDS: Cholecalciferol (Vitamin D3) 400 Unit Tab PO SCH (08:52)
[2016-07-10] MEDS: Acetaminophen 325 MG Tab PO PRN (14:18)
[2016-07-10] MEDS: Beta-Carotene (Vitamin A) w/Vitamin C & E plus Minerals Tab PO SCH (21:12)
[2016-07-10] MEDS: rOPINIRole 1 MG Tab PO SCH (21:13)
[2016-07-10] MEDS: Simvastatin 40 MG Tab PO SCH (21:13)
[2016-07-10] MEDS: Melatonin 3 MG Tab PO SCH (21:58)
[2016-07-11] MEDS: Levothyroxine 25 MCG Tab PO SCH (06:31)
[2016-07-11] MEDS: Levothyroxine 112 MCG Tab PO SCH (06:31)
[2016-07-11] MEDS: Furosemide 40 MG/4 ML VIAL IVPUSH SCH ×2 (06:38→13:40)
[2016-07-11 08:44] VITALS: BP 116/60
[2016-07-11] MEDS: Cholecalciferol (Vitamin D3) 400 Unit Tab PO SCH (09:04)
[2016-07-11] MEDS: Aspirin 81 MG Tab.EC PO SCH (09:04)
[2016-07-11] MEDS: Calcium Carbonate/Vitamin D3 1500 MG-400 Units Tab PO SCH (09:04)
[2016-07-11] MEDS: Metoprolol Succinate 100 MG Tab.ER PO SCH (09:04)
[2016-07-11] MEDS: Clopidogrel 75 MG Tab PO SCH (09:05)
[2016-07-11] MEDS: Spironolactone 25 MG Tab PO SCH (09:06)
--- NOTE | 2016-07-11 10:33 | PCM.DCSUM1 ---
Discharge Summary - Hospital Course Brief History: This 80 year old female with pmh of DC, CVA, CHF, atrial fibrillation, and PVD presented to the ED on 07/08/2016 with several day history of shortness of breath, unproductive cough and worsening of lower extremity edema. She reported the shortenss of breath was worse last night and sitting up helped. In the ED, hypoxia was noted and was satting 96% on 3 liters NC. CXR reported pulmonary vascular congestion. She was given Duonebs and Lasix IV , which did improve symptoms some. She is visiting [facility] for [facility] , she follows with [facility] and PCP in [place] at [place]. - Discharge Data Discharge Date: 07/11/16 Discharge Disposition: Home, Self-Care 01 Condition: Good - Discharge Diagnosis/Problem(s) (1) CHF (congestive heart failure) SNOMED Code(s): 64607288 ICD Code: I50.9 - HEART FAILURE, UNSPECIFIED Status: Acute Current Visit : Yes Problem Details: Last ECHO February 2016 approximately revealed 65% EF Qualifiers: Congestive heart failure type: diastolic Congestive heart failure chronicity: acute on chronic Qualified Code(s): I50.33 - Acute on chronic diastolic (congestive) heart failure (2) PVD (peripheral vascular disease) SNOMED Code(s): 378097370 ICD Code: I73.9 - PERIPHERAL VASCULAR DISEASE, UNSPECIFIED Status: Chronic Current Visit: Yes (3) S/P mitral valve clip implantation SNOMED Code(s): 37965148899959 ICD Code: Z98.890 - OTHER SPECIFIED POSTPROCEDURAL STATES; Z95.818 - PRESENCE OF OTHER CARDIAC IMPLANTS AND GRAFTS Status: Chronic Current Visit : Yes Problem Details: August 2015 (4) Mitral valve regurgitation SNOMED Code(s): 00020965 ICD Code: I34.0 - NONRHEUMATIC MITRAL (VALVE) INSUFFICIENCY Status: Chronic Current Visit: Yes Qualifiers: Cardiac valve disease etiology: nonrheumatic Qualified Code(s): I34.0 - Nonrheumatic mitral (valve) insufficiency (5) A-fib SNOMED Code(s): 29792836 ICD Code: I48.91 - UNSPECIFIED ATRIAL FIBRILLATION Status: Chronic Current Visit: Yes Qualifiers: Atrial fibrillation type: unspecified Qualified Code(s): I48.91 - Unspecified atrial fibrillation (6) RLS (restless legs syndrome) SNOMED Code(s): 92774695 ICD Code: G25.81 - RESTLESS LEGS SYNDROME Status: Chronic Current Visit: Yes (7) CAD (coronary artery disease) SNOMED Code(s): 25295138 ICD Code: I25.10 - ATHSCL HEART DISEASE OF [place] CORONARY ARTERY W/O ANG PCTRS Status: Chronic Current Visit: Yes Qualifiers: Coronary Disease-Associated Artery/Lesion type: [place] artery [place] vs. transplanted heart: cheesh[place]na heart Associated angina: without angina Qualified Code(s): I25.10 - Atherosclerotic heart disease of [place] coronary artery without angina pectoris (8) HTN (hypertension) SNOMED Code(s): 29500972 ICD Code: I10 - ESSENTIAL (PRIMARY) HYPERTENSION Status: Chronic Current Visit: Yes Qualifiers: Hypertension type: essential hypertension Qualified Code(s): I10 - Essential (primary) hypertension (9) Hypothyroidism SNOMED Code(s): 24883115 ICD Code: E03.9 - HYPOTHYROIDISM, UNSPECIFIED Status: Chronic Current Visit: Yes Qualifiers: Hypothyroidism type: unspecified Qualified Code(s): E03.9 - Hypothyroidism , unspecified (10) History of CVA (cerebrovascular accident) SNOMED Code(s): 878500483 ICD Code: Z86.73 - PRSNL HX OF TIA (TIA), AND CEREB INFRC W/O RESID DEFICITS Status: Chronic Current Visit: Yes Problem Details: 09/23/2002 (11) Hx of myocardial infarction SNOMED Code(s): 821557824 ICD Code: I25.2 - OLD MYOCARDIAL INFARCTION Status: Chronic Current Visit : Yes Problem Details: 1982 - Patient Instructions Diet: Heart Healthy Diet, Low Sodium Activity: As Tolerated Showering/Bathing: June Shower Notify Provider of: Fever, Increased Pain, Swelling and Redness, Drainage, Nausea and/or Vomiting Other/Special Instructions: Weigh yourself daily, call doctor if you gain 3-5 lbs over 2-3 days. - Discharge Plan Prescriptions/Med Rec: Albuterol [IJD: Ventolin HFA] 2 puff INH Q4H PRN #1 inh PRN Reason: SOB/wheezing Furosemide [Lasix] 60 mg PO BID #20 tablet Home Medications: Home Meds Calcium Carbonate/Vitamin D3 [Caltrate 600 Plus D3 Tablet] 1 tab PO BID [History] Clopidogrel [Plavix] 75 tab PO DAILY 04/20/14 [History] Levothyroxine [Levothroid] 137 mcg PO DAILY 04/20/14 [History] Multivit-Min/FA/Lycopene/Lut [Centrum Silver] 1 tab PO BEDTIME 04/20/14 [History ] Simvastatin [Zocor] 20 mg PO BEDTIME 04/20/14 [History] rOPINIRole [Requip] 4 mg PO BEDTIME 04/20/14 [History] Cyanocobalamin (Vitamin B12) [Vitamin B12] 1,000 mcg SQ ASDIRECTED 05/03/14 [ History] Albuterol/Ipratropium [DuoNeb 3.0-0.5 MG/3 ML] 3 ml INH Q4H PRN 07/08/16 [ History] Aspirin [Halfprin] 81 mg PO DAILY 07/08/16 [History] Ergocalciferol (Vitamin D2) [Vitamin D] 400 unit PO DAILY 07/08/16 [History] Melatonin 5 mg PO BEDTIME 07/08/16 [History] Metoprolol Succinate [Toprol Xl] 100 mg PO DAILY 07/08/16 [History] Potassium Chloride [Klor-Con M20] 20 meq PO BID 07/08/16 [History] Spironolactone [Aldactone] 25 mg PO BID 07/08/16 [History] amLODIPine [Norvasc] 5 mg PO DAILY 07/08/16 [History] Albuterol [IJD: Ventolin HFA] 2 puff INH Q4H PRN #1 inh 07/11/16 [Rx] Furosemide [Lasix] 60 mg PO BID #20 tablet 07/11/16 [Rx] Patient Handouts: Furosemide tablets, Albuterol inhalation aerosol, Heart Failure, [id number] - Discharge Summary/Plan Comment DC Time >30 min.: No Discharge Summary/Plan Comment: Discharge Diagnoses: Acute on chronic CHR exacerbation. Hypoxia: resolved. PVD Mitral valve regurgitation with clipping Afib: stable, none seen during admission RLS CAD HTN stable Hypothyroidism Zully was admitted and treated with IV Lasix for acute on chronic CHF. Most recent ECho was completed in May 2016 which showed preserved EF. She reports she [facility] will be doing another ECHO shortly after stopping her Amiodarone. She had approximately 2-3 L diuresis each day with TID Lasix 40 mg IV. BUN and Cr stable BUN 25, Cr 1.3. She is near her dry weight of 192 lbs. Today she was 195 lbs. Lower leg edema has improved, but yesterday she sat in the chair all day and more dependent edema is noted today. She is encouraged to wear compression stockings and elevate her legs as she can. She reports not like the compression stocking because they hurt her flaking feet when putting them on. She will try them again and try elevating her feet more. Tele has remained SR with BBB, no afib noted during stay. Electrolytes replaced during stay as needed. She has been weaned off oxygen, sating 90-92% on RA and with activity. Slight dyspnea is noted, but she reports this is baseline and has improved significantly since admission. She is very eager for discharge today with plans to return to Home, [facility], tomorrow morning. Family had arrange appointment with [facility] in [place] on July 26, they did instruct her to call sooner if concerns arise after making if back to [place]. I will discharge her home today with increase in Lasix to 60 mg BID until her follow up with Cardiology. She is to return to ED or clinic if concerns should arise or if she has issues traveling. She was educated to weigh herself daily and contact her provider if she were to gain more the 3-5 lbs over 2-3 days, seek help if chest pain occurs or SOB worsens. - General Info Date of Service: 07/11/16 Admission Dx/Problem (Free Text: CHF exacerbation Subjective Update: Doing well this am. Had some SOB during the night, but had nebulizer and this cleared. Requesting discharge today. No chest pain. Some dypsnea noted still with activity and speech. No longer needing oxygen, oxygen sats 90-92% RA. Does reports more swelling to lower legs, but "I sat in the chair from morning to evening last night." Encouraged to wear compression stockings and try to elevate legs more to decrease dependent edema. Functional Status: Reports: pain controlled, tolerating diet, ambulating, urinating - Review of Systems General: Reports: No Symptoms. Denies: Fever HEENT: Reports: no symptoms. Denies: sinus congestion, sore throat, rhinitis Pulmonary: Reports: shortness of breath (intermittently) Cardiovascular: Reports: Dyspnea on Exertion (intermittently, has improved since admission), Edema. Denies: Palpitations Gastrointestinal: Reports: No symptoms. Denies: Abdominal pain Genitourinary: Reports: no symptoms. Denies: dysuria Skin: Reports: dryness (flaking to soles of feet) Neurological: Reports: No Symptoms Psychiatric: Reports: no symptoms - Patient Data Vitals - Most Recent: Last Vital Signs Temp 98.7 F 07/11/16 08:00 Pulse 67 07/11/16 09:04 Resp 18 07/11/16 08:00 BP 116/60 07/11/16 09:04 Pulse Ox 91 L 07/11/16 09:06 Weight - Most Recent: 89.584 kg I&O - Last 24 hours: Intake & Output 07/10/16 07/11/16 07/11/16 22:59 06:59 14:59 Intake Total 1380 540 Output Total 2100 1300 Balance -720 -760 Lab Results - Last 24 hrs: Laboratory Results - last 24 hr 07/11/16 07/11/16 07/11/16 Range/Units 04:56 04:56 05:05 WBC 5.90 (4.0-11.0) K/uL RBC 3.97 L (4.30-5.90) M/uL Hgb 12.6 (12.0-16.0) g/dL Hct 38.0 (36.0-46.0) % MCV 95.7 (80.0-98.0) fL MCH 31.7 (27.0-32.0) pg MCHC 33.2 (31.0-37.0) g/dL RDW Std Deviation 47.4 (28.0-62.0) fl RDW Coeff of Janelle 14 (11.0-15.0) % Plt Count 255 (150-400) K/uL MPV 9.20 (7.40-12.00) fL Neut % (Auto) 60.8 (48.0-80.0) % Lymph % (Auto) 23.7 (16.0-40.0) % [place] % (Auto) 10.3 (0.0-15.0) % Eos % (Auto) 4.4 (0.0-7.0) % Baso % (Auto) 0.8 (0.0-1.5) % Neut # (Auto) 3.6 (1.4-5.7) K/uL Lymph # (Auto) 1.4 (0.6-2.4) K/uL [place] # (Auto) 0.6 (0.0-0.8) K/uL Eos # (Auto) 0.3 (0.0-0.7) K/uL Baso # (Auto) 0.1 (0.0-0.1) K/uL Nucleated RBC % 0.0 /100WBC Nucleated RBCs # 0 K/uL Sodium 135 L (136-146) mmol/L Potassium 4.1 (3.5-5.1) mmol/L Chloride 96 L (98-110) mmol/L Carbon Dioxide 27 (21-31) mmol/L BUN 23 (6.0-23.0) mg/dL Creatinine 1.3 (0.6-1.5) mg/dL Est Cr Clr Drug Dosing 26.51 mL/min Estimated GFR (MDRD) 39.5 ml/min Glucose 98 (60-110) mg/dL Calcium 8.8 (8.8-10.8) mg/dL Magnesium 1.7 (1.5-2.3) mEq/L Med Orders - Current: Current Medications Acetaminophen (Tylenol) 650 mg PO Q4H PRN PRN Reason: Pain/Fever Last Admin: 07/10/16 14:18 Dose: 650 mg Albuterol/Ipratropium (Duoneb 3.0-0.5 Mg/3 Ml) 3 ml NEB Q4HRRT PRN PRN Reason: Dyspnea Last Admin: 07/09/16 00:55 Dose: 3 ml Aspirin (Halfprin) 81 mg PO DAILY [facility] Last Admin: 07/11/16 09:04 Dose: 81 mg Calcium Carbonate (Caltrate 600+D 1500 Mg-400 Units) 1 tab PO BID [facility] Last Admin: 07/11/16 09:04 Dose: 1 tab Cholecalciferol (Vitamin D3) 400 units PO DAILY [facility] Last Admin: 07/11/16 09:04 Dose: 400 units Clopidogrel Bisulfate (Plavix) 75 mg PO DAILY [facility] Last Admin: 07/11/16 09:05 Dose: 75 mg Furosemide (Lasix) 40 mg IVPUSH 0600,1200,1800 [facility] Last Admin: 07/11/16 06:38 Dose: 40 mg Levothyroxine Sodium (Levothyroxine) 112 mcg PO ACBREAKFAST [facility] Last Admin: 07/11/16 06:31 Dose: 112 mcg Levothyroxine Sodium (Levothyroxine) 25 mcg PO ACBREAKFAST [facility] Last Admin: 07/11/16 06:31 Dose: 25 mcg Melatonin (Melatonin) 3 mg PO BEDTIME [facility] Last Admin: 07/10/16 21:58 Dose: 3 mg Metoprolol Succinate (Toprol Xl) 100 mg PO DAILY [facility] Last Admin: 07/11/16 09:04 Dose: 100 mg Multivitamins/Minerals (Prosight) 1 tab PO BEDTIME [facility] Last Admin: 07/10/16 21:12 Dose: 1 tab Ropinirole HCl (Requip) 4 mg PO BEDTIME [facility] Last Admin: 07/10/16 21:13 Dose: 4 mg Simvastatin (Zocor) 40 mg PO BEDTIME [facility] Last Admin: 07/10/16 21:13 Dose: 40 mg Spironolactone (Aldactone) 25 mg PO BID [facility] Last Admin: 07/11/16 09:06 Dose: 25 mg Discontinued Medications Albuterol/Ipratropium (Duoneb 3.0-0.5 Mg/3 Ml) 3 ml NEB ONETIME ONE Stop: 07/08/16 06:59 Last Admin: 07/08/16 07:03 Dose: 3 ml Enoxaparin Sodium (Lovenox) 30 mg SUBCUT DAILY [facility] Furosemide (Lasix) 40 mg IVPUSH NOW ONE Stop: 07/08/16 07:03 Last Admin: 07/08/16 07:13 Dose: 40 mg Furosemide (Lasix) 40 mg PO DAILY [facility] Furosemide (Lasix) 40 mg IVPUSH BIDDIURETIC [facility] Last Admin: 07/09/16 08:12 Dose: 40 mg Furosemide (Lasix) 40 mg IVPUSH TID [facility] Last Admin: 07/09/16 23:01 Dose: 40 mg Ropinirole HCl (Requip) 4 mg PO ONETIME STA Stop: 07/08/16 16:09 Last Admin: 07/08/16 16:46 Dose: 4 mg - Exam General: Reports: alert, oriented, cooperative, no acute distress Neck: Reports: supple Lungs: Reports: Clear to auscultation. Denies: Normal respiratory effort ( dypsnea with speech intermittently) Cardiovascular: Reports: Regular Rate, Regular Rhythm. Denies: Irregular Rhythm Abdomen: Reports: bowel sounds present, soft, no tenderness, no distension Extremities: Reports: normal pulses, edema (+2-3 non pitting edema to lower legs.) Skin: Reports: warm, dry, other (flaking continues to billateral soles of feet) Wound/Incisions: Denies: erythema Neurological: Reports: no new focal deficit Psy/Mental Status: Reports: alert, normal affect, normal mood *Q Meaningful Use (DIS) - VTE *Q VTE Criteria *Q: - Stroke *Q Stroke Criteria *Q: - AMI *Q AMI Criteria *Q:
== END 2016-07-11 13:00 | disposition home or self-care (01) | DRG 293 ==
LOC: MW.ED 05:56 → OBSVTOIN 07:14 → MW.MS 07:14 → INTOOBSV 07:14
PROVIDERS: ADMIT Internal Medicine; ATTEND Internal Medicine
DX: I50.30 Unspecified diastolic (congestive) heart failure (principal); I50.9 Heart failure, unspecified; R06.02 Shortness of breath; I73.9 Peripheral vascular disease, unspecified; Z79.82 Long term (current) use of aspirin; I34.0 Nonrheumatic mitral (valve) insufficiency; I48.91 Unspecified atrial fibrillation; G25.81 Restless legs syndrome; I25.10 Atherosclerotic heart disease of native coronary artery without angina pectoris; I10 Essential (primary) hypertension; E03.9 Hypothyroidism, unspecified; J44.9 Chronic obstructive pulmonary disease, unspecified; E78.00 Pure hypercholesterolemia, unspecified; I25.2 Old myocardial infarction; Z95.818 Presence of other cardiac implants and grafts; Z86.73 Personal history of transient ischemic attack (TIA), and cerebral infarction without residual deficits; Z98.890 Other specified postprocedural states; Z79.899 Other long term (current) drug therapy; Z87.891 Personal history of nicotine dependence
CPT/HCPCS: 36415; 71020; 80053; 83880; 84484; 85025; 85610; 93005; 94664; 96374; 99285; J1940; 80048; 83735; A9270-GY